=== PATIENT | male | born 1995 | race African-American/Black ===

== ENCOUNTER 2019-06-25 19:31 | Emergency (ER) | payer OTHER ==
--- NOTE | 2019-06-25 20:45 | ED Physician Documentation ---
History of Present Illness - Stated complaint Stated Complaint: RIGHT GROIN PAIN, LEFT KNEE PAIN - Chief complaint Chief Complaint: Ext Problem - History obtained from History obtained from: Patient - History of Present Illness Timing: Prior to arrival Pain level max: 8 - Additonal information Additional information: This is a 24-year-old presents with complaints that he was on a skateboard and he fell off when he did he can landed on his knees but his left knee landed on the skateboard itself and he did the splits. He heard and felt a popping sensation in the right hip which he described as feeling like the joint was dislocating like taking a chicken leg off. Having pain on the inside aspect of both knees and in the right groin if he tries to stand on the hip pivoted or lift the leg up. Does not have any pain at rest. Pain at its worst is a 7-8 out of 10. The injury occurred about 2 hours ago. No pain or swelling to the testicle. His low back is a little bit sore but he did not land on his back. He has not taken any medications for the pain and denies numbness or tingling into his feet. 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 Review of Systems : denies: Testicular pain, Testicular mass Musculoskeletal: reports: Joint pain, Pain with weight bearing. denies: Back pain, Extremity swelling, Joint swelling Neurologic: denies: Numbness PD PAST MEDICAL HISTORY - Past Medical History Past Medical History: No - Past Surgical History Past Surgical History: No - Present Medications Home Medications: Ambulatory Orders Medication Instructions Recorded Confirmed Ibuprofen [Motrin] 800 mg PO Q8H PRN #30 tablet 06/25/19 - Allergies Allergies/Adverse Reactions: Allergies Allergy/AdvReac Type Severity Reaction Status Date / Time No Known Drug Allergies Allergy Verified 06/25/19 19:38 - Social History Does the pt smoke?: Yes Smoking Status: Current every day smoker Does the pt drink ETOH?: Yes ETOH Use: Liquor Does the pt have substance abuse?: No - Immunizations Immunizations are current?: Yes - POLST Patient has POLST: No PD ED PE NORMAL - Vitals Vital signs reviewed: Yes - General General: Alert and oriented X 3, No acute distress, Well developed/nourished - HEENT HEENT: Atraumatic - Derm Derm: Normal color, No rash, Other (No bruising in the groin.) - Extremities Extremities: No deformity, Other (He does have pain with palpation in the proximal R thigh and the inferior pubic ramus. Both knees are tender to move them. There is no obvious bruising. There is pain in the proximal medial tibial plateau of the right knee. Limited range of motion due to pain. Sens ation is intact to light touch in his feet and he has 2+ dorsalis pedis pulses.) Results - Vitals Vitals: Vital Signs - 24 hr 06/25/19 19:37 Temperature 36.7 C Heart Rate 75 Respiratory 18 Rate Blood Pressure 138/84 H O2 Saturation 99 Oxygen O2 Source Room air PD MEDICAL DECISION MAKING - ED course Complexity details: reviewed results, d/w patient ED course: Pelvis x-ray does not show an avulsion fracture of the inferior pubic ramus. The left knee images also do not show any fracture. Patient will be prescribed Mot[place]. Ice to the sore areas. Departure - Departure Disposition: 01 Home, Self Care Clinical Impression: Groin strain Qualifiers: Encounter type: initial encounter Laterality: right Qualified Code(s): S76.211A - Strain of adductor muscle, fascia and tendon of right thigh, initial encounter Contusion of knee, left Qualifiers: Encounter type: initial encounter Qualified Code(s): S80.02XA - Contusion of left knee, initial encounter Condition: Good Instructions: ED Contusion Lower Ext, ED Strain Groin Follow-Up: [facility] [Provider Group] Prescriptions: Ibuprofen [Motrin] 800 mg PO Q8H PRN #30 tablet PRN Reason: PAIN &/OR FEVER Comments: Ice the groin and the knees as needed. Take ibuprofen as needed for pain. [place]. Forms: Activity restrictions
[2019-06-25] MEDS ORDERED: IBUPROFEN 600 MG TABLET PO STA (20:47)
--- NOTE | 2019-06-25 21:17 | XRAY Report ---
Reason: R groin pain after trauma Procedure Date: 06/25/2019 Accession Number: [id number] / [id number] Procedure: XR - Pelvis 1 View CPT Code: FULL RESULT: EXAM: PELVIS RADIOGRAPHY EXAM DATE: 06/25/2019 09:03 PM. CLINICAL HISTORY: Right groin pain after trauma. COMPARISON: None. TECHNIQUE: 1 view. FINDINGS: Bones: Normal. No fracture or bone lesion. Joints: The visualized hip, pubis symphysis, and sacroiliac joints are preserved. No subluxation. Soft Tissues: Normal. No soft tissue swelling. IMPRESSION: Normal pelvis radiography. [facility]
--- NOTE | 2019-06-25 21:18 | XRAY Report ---
Reason: pain; fell on knee Procedure Date: 06/25/2019 Accession Number: [id number] / [id number] Procedure: XR - Knee 4 View LT CPT Code: FULL RESULT: EXAM: LEFT KNEE RADIOGRAPHY EXAM DATE: 06/25/2019 09:03 PM. CLINICAL HISTORY: Pain; fell on knee. COMPARISON: None. TECHNIQUE: 4 views. FINDINGS: Bones: Normal. No fractures or bone lesions. Joints: Normal. No effusion. No subluxations. Soft Tissues: Normal. No soft tissue swelling. IMPRESSION: Normal knee radiography. [facility]
[2019-06-25 21:37] VITALS: BP 144/67
== END 2019-06-25 21:40 | disposition home or self-care (01) ==
LOC: EDBD → ED 19:31
DX: S39.011A Strain of muscle, fascia and tendon of abdomen, initial encounter (principal); S76.211A Strain of adductor muscle, fascia and tendon of right thigh, initial encounter; S80.02XA Contusion of left knee, initial encounter; V00.131A Fall from skateboard, initial encounter; Y93.51 Activity, roller skating (inline) and skateboarding; F17.200 Nicotine dependence, unspecified, uncomplicated
CPT/HCPCS: 72170; 73564; 99283; 99284; A9270

== ENCOUNTER 2020-01-24 19:48 | Emergency (ER) | payer OTHER ==
[2020-01-24 20:54] LABS: GLUCOSE, URINE (UA) NEGATIVE (NEGATIVE); KETONES,URINE (UA) 15 mg/dL (NEGATIVE); LEUKOCYTE ESTERASE, URINE NEGATIVE (NEGATIVE); NITRITE,URINE NEGATIVE (NEGATIVE); OCCULT BLOOD,URINE TRACE-INTA (NEGATIVE); PH,URINE 6.5 PH (5.0-7.5); PROTEIN,URINE NEGATIVE (NEGATIVE); UROBILINOGEN,URINE 0.2 (NORMAL) E.U./dL (NORMAL)
[2020-01-24 21:05] LABS: BILIRUBIN,URINE SMALL (NEGATIVE); CLARITY,URINE CLEAR (CLEAR); ICTOTEST,URINE POSITIVE; RBC,URINE 0-5 /HPF (0-5)
[2020-01-24 21:06] LABS: BACTERIA,URINE None Seen /HPF (None Seen); MUCUS,URINE Moderate Strands; SQUAMOUS EPITHELIAL CELL,UR NONE SEEN (<= Few)
--- NOTE | 2020-01-24 21:37 | ED Physician Documentation ---
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 He comes in today with reports of a headache, lightheadedness, dizziness, Chills, runny nose lasting about 12 hours today. despite his fever, he has not taken any Tylenol or ibuprofen for it as he was unsure if he should because he has not eaten anything today. He has been drinking small frequent sips of water, holding those down. The patient also states that approximately 1 month ago when he was urinating he noticed what he thought was blood in his urine happened 1 time, and has not returned since then. He denies any dysuria presently, hematuria, frequency, urgency. He is , monogamous relationship, does not use protection with intercourse. Denies any STDs or STIs.) Review of Systems Constitutional: reports: Fever, Chills, Fatigue Ears: reports: Reviewed and negative Nose: reports: Rhinorrhea / runny nose Throat: denies: Sore throat Cardiac: reports: Reviewed and negative Respiratory: reports: Reviewed and negative GI: reports: Nausea, Vomiting. denies: Diarrhea PD PAST MEDICAL HISTORY - Past Medical History Past Medical History: No Cardiovascular: None Respiratory: None Neuro: None Endocrine/Autoimmune: None GI: None : None HEENT: None Psych: None Musculoskeletal: None Derm: None - Past Surgical History Past Surgical History: No - Present Medications Home Medications: Ambulatory Orders Medication Instructions Recorded Confirmed Ibuprofen [Motrin] 800 mg PO Q8H PRN #30 tablet 06/25/19 - Allergies Allergies/Adverse Reactions: Allergies Allergy/AdvReac Type Severity Reaction Status Date / Time No Known Drug Allergies Allergy Verified 01/24/20 19:53 - Social History Does the pt smoke?: Yes Smoking Status: Current every day smoker Does the pt drink ETOH?: Yes Does the pt have substance abuse?: No - Immunizations Immunizations are current?: Yes - POLST Patient has POLST: No PD ED PE NORMAL - General General: Alert and oriented X 3, No acute distress, Well developed/nourished - HEENT HEENT: Atraumatic, PERRL, EOMI, Ears normal, Moist mucous membranes, Pharynx benign, Other (No maxillary or frontal sinus tenderness) - Cardiac Cardiac: RRR, No murmur - Respiratory Respiratory: No respiratory distress, Clear bilaterally - Abdomen Abdomen: Normal bowel sounds, Soft, Non tender, Non distended, No organomegaly - Back Back: No CVA TTP - Derm Derm: Warm and dry, No rash PD ED PE EXPANDED - Neck Neck: Adenopathy (anterior & posterior cervical.) Results - Vitals Vitals: Vital Signs - 24 hr 01/24/20 01/24/20 19:53 22:18 Temperature 37.8 C H 37.6 C H Heart Rate 95 98 Respiratory 14 16 Rate Blood Pressure 145/90 H 121/78 O2 Saturation 100 96 Oxygen O2 Source Room air - Labs Labs: Laboratory Tests 01/24/20 01/24/20 20:45 21:50 Urine Color YELLOW Urine Clarity CLEAR Urine pH 6.5 Ur Specific Butler 1.020 Urine Protein NEGATIVE Urine Glucose (UA) NEGATIVE Urine Ketones 15 H Urine Occult Blood TRACE-INTA Urine Nitrite NEGATIVE Urine Bilirubin SMALL H Urine Urobilinogen 0.2 (NORMAL) Ur Leukocyte Esterase NEGATIVE Urine RBC 0-5 Urine WBC 0-3 Ur Squamous Epith Cells NONE SEEN Urine Bacteria None Seen Urine Mucus Moderate Strands Urine Culture Comments NOT INDICATED Influenza A (Rapid) Negative Influenza B (Rapid) Negative PD MEDICAL DECISION MAKING - ED course Complexity details: reviewed results (Influenza swab negative today), re- evaluated patient, considered differential, d/w patient, other Departure - Departure Disposition: 01 Home, Self Care Clinical Impression: Viral URI Condition: Good Instructions: ED Viral Syndrome Comments: Your flu test today was negative. As we discussed, you should be drinking plenty of clear fluids to stay well-hydrated to help reduce her fever.. You can take ibuprofen or Tylenol for fever control. You can take these on an empty stomach. I have provided you with a note for no work for 2 days so he can get rested up. Should your symptoms fail to improve after this time he can follow- up with your primary care provider. If your symptoms worsen me welcome to return to the ER for further evaluation. Forms: Activity restrictions Discharge Date/Time: 01/24/20 22:22
[2020-01-24] MEDS ORDERED: IBUPROFEN 600 MG TABLET PO STA (21:46)
[2020-01-24 22:19] VITALS: BP 121/78
== END 2020-01-24 22:22 | disposition home or self-care (01) ==
LOC: ED 19:48
DX: J06.9 Acute upper respiratory infection, unspecified (principal); R11.2 Nausea with vomiting, unspecified; F17.200 Nicotine dependence, unspecified, uncomplicated
CPT/HCPCS: 81001; 87275; 87276; 99283; 99284; A9270; 87086